=== PATIENT | female | born 1955 | race African-American/Black ===

== ENCOUNTER 2020-09-11 01:58 | Emergency (ER) | payer OTHER ==
[~2020-09-11] VITALS: Ht 167.6 cm; Wt 77.3 kg
[2020-09-11] MEDS ORDERED: INSLAN SQ (02:26)
[2020-09-11] MEDS ORDERED: HYDR-1475 PO (02:26)
[2020-09-11] MEDS ORDERED: AMLO-257 PO (02:26)
[2020-09-11] MEDS ORDERED: SITA1TBM7 PO (02:26)
[2020-09-11] MEDS ORDERED: ROSU10TA22 PO (02:26)
[2020-09-11] MEDS ORDERED: ATEN-73 PO (02:26)
[2020-09-11 03:10] VITALS: BP 135/81
[2020-09-11 03:22] LABS: BASOPHILS % (AUTO) 0.4 % (0.0-2.0); EOSINOPHILS % (AUTO) 2.5 % (1.0-6.0); HEMATOCRIT 37.1 % (36-46); HEMOGLOBIN 12.8 g/dL (12.0-16.0); LYMPHOCYTES % (AUTO) 37.1 % (22.0-44.0); MEAN CORPUSCULAR HEMOGLOBIN 28.8 pg (26.0-34.0); MEAN CORPUSCULAR HGB CONC 34.4 G/dL (31.0-37.0); MEAN CORPUSCULAR VOLUME 84 fL (80-100); MONOCYTES # (AUTO) 1.1 K/uL (0.1-1.0); MONOCYTES % (AUTO) 10.2 % (2.0-9.0); NEUTROPHILS # (AUTO) 5.4 K/uL (1.8-7.7); NEUTROPHILS % (AUTO) 49.8 % (40.0-70.0); PLATELET COUNT (AUTO) 325 K/uL (150-450); RED BLOOD CELL COUNT(AUTO) 4.43 MIL/uL (4.00-5.20)
[2020-09-11 03:25] LABS: ANION GAP 7 mmol/L (8-16); CALCIUM, TOTAL 9.8 mg/dL (8.8-10.5); CARBON DIOXIDE 32 mmol/L (22-29); CHLORIDE 102 mmol/L (98-107); CREATININE 0.91 mg/dL (0.60-1.30); GLOMERULAR FILTR. RATE CALC > 60 mL/min (>60); GLUCOSE,RANDOM 151 mg/dL (70-110); POTASSIUM 3.3 mmol/L (3.5-5.1); SODIUM SERUM 141 mmol/L (136-145); UREA NITROGEN, BLOOD 10 mg/dL (7-18)
[2020-09-11 03:47] LABS: GLUCOSE,POINT OF CARE 144 MG/DL (70-110)
[2020-09-11 03:49] LABS: B-TYPE NATRIURETIC PEPTIDE < 5 pg/mL (0-100)
[2020-09-11 03:50] LABS: ALANINE AMINOTRANSFERASE 45 U/L (12-78); ALBUMIN 3.8 g/dL (3.4-5.0); ALKALINE PHOSPHATASE 123 U/L (46-116); ASPARTATE AMINOTRANSFERASE 30 U/L (15-37); BILIRUBIN,TOTAL 0.3 mg/dL (0.1-1.0); CREATINE KINASE, TOTAL ONLY 142 U/L (26-192); TOTAL PROTEIN, SERUM 7.4 g/dL (6.4-8.2)
== END 2020-09-11 03:10 | disposition left against medical advice (07) ==
LOC: EMS 02:00
DX: E11.649 Type 2 diabetes mellitus with hypoglycemia without coma (principal); Z79.4 Long term (current) use of insulin
CPT/HCPCS: 93005; 36415-L1; 36415-TC; 71045-TC